=== PATIENT | female | born 1955 | race Caucasian/White ===

== ENCOUNTER 2017-12-31 20:52 | Emergency (ER) | payer MEDICARE, BC ==
[2017-12-31] MEDS ORDERED: Acetaminophen/oxyCODONE 325-5 MG Tab PO ONE (20:53)
[2017-12-31] MEDS ORDERED: Ondansetron 4 MG/2 ML SDV IVPUSH STA ×2 (21:11→22:47)
[2017-12-31] MEDS ORDERED: Morphine 4 MG/ML Syringe IVPUSH ONE ×2 (21:11→22:47)
[2017-12-31] MEDS ORDERED: Diphtheria,Pertussis(Acell),Tetanus Vaccine 0.5 ML Syringe IM ONE (21:12)
--- NOTE | 2017-12-31 21:30 | EDM.PDOC ---
ED HPI GENERAL MEDICAL PROBLEM - General Chief Complaint: Upper Extremity Injury/Pain Stated Complaint: "Fell and hurt my wrist" Time Seen by Provider: 12/31/17 21:23 Source of Information: Reports: Patient History Limitations: Reports: No Limitations - History of Present Illness INITIAL COMMENTS - FREE TEXT/NARRATIVE: This patient is a 62 year old female that presents to the ER. Patient reports she was at home wearing slippers when she tripped over them. She reprots falling down on the carpet. Patient reports having pain to the right wrist. Patient reports that she fell and hit the left front of her face on the carpet. Patient reports that when she got up on her own that she felt nauseated. Patient denies any other injury other than right wrist and left face. Patient denies espinoza, dizziness, v, d, f, neck pain, neck stiffness, cp, soa, abd pain, back pain, left arm pain, lower extremity pain, pelvis/hip pain. Patient ambulatory. Pulses +2, cap refill < 2sec, sensory intact, neurovascular intact of all extremities. RUE wrist motor decreased due to deformity and pain. Motor intact to LUE, BLE. Will CT head, neck, face due to facial trauma with abrasion , nausea, taking aspirin, and distracting injury to wrist. Onset: Today Onset Date: 12/31/17 Duration: Hour(s): (1) Location: Reports: Head, Upper Extremity, Right Front/Back Body Image: 1 - pain, tenderness, obvious deformity. 2 - abrasion Severity: Moderate Improves with: Reports: Immobilization Worsens with: Reports: Movement Associated Symptoms: Reports: Nausea/Vomiting. Denies: Confusion, Chest Pain, Cough, cough w sputum, Diaphoresis, Fever/Chills, Headaches, Loss of Appetite, Malaise, Rash, Seizure, Shortness of Breath, Syncope, Weakness - Related Data Allergies Allergy/AdvReac Type Severity Reaction Status Date / Time Sulfa (Sulfonamide Allergy Paralysis Verified 12/31/17 22:25 Antibiotics) Home Meds: Home Meds Aspirin [Adult Low Dose Aspirin EC] 81 mg PO DAILY 12/31/17 [History] Calcium Carb/Vit D3/Minerals [Calcium 600+D Plus Minerals] 1 each PO BID [History] Cholecalciferol (Vitamin D3) [Vitamin D3] 2,000 unit PO ASDIRECTED 12/31/17 [ History] FLUoxetine [PROzac] 40 mg PO DAILY 12/31/17 [History] Levothyroxine [Synthroid] 88 mcg PO DAILY 12/31/17 [History] Lisinopril 10 mg PO DAILY 12/31/17 [History] Multivitamin with Minerals [Multiple Vitamin] 1 tab PO DAILY 12/31/17 [History] clonazePAM [Clonazepam] 0.5 mg PO DAILY 12/31/17 [History] Review of Systems - Review of Systems Review Of Systems: See Below Constitutional: Reports: No Symptoms Eyes: Reports: No Symptoms Ears: Reports: No Symptoms Nose: Reports: No Symptoms Mouth/Throat: Reports: No Symptoms Respiratory: Reports: No Symptoms Cardiovascular: Reports: No Symptoms GI/Abdominal: Reports: Nausea. Denies: Vomiting Genitourinary: Reports: No Symptoms Musculoskeletal: Reports: No Symptoms Skin: Reports: Wound (left face) Neurological: Reports: No Symptoms. Denies: Confusion, Dizziness, Headache, Numbness, Seizure, Syncope, Tingling, Tremors, Difficulty Walking, Weakness, Change in Speech, Gait Disturbance Psychiatric: Reports: No Symptoms ED EXAM, GENERAL - Physical Exam Exam: See Below Exam Limited By: No Limitations General Appearance: Alert, WD/WN, No Apparent Distress Eye Exam: Bilateral Eye: EOMI, Normal Fundi, PERRL Ears: Normal External Exam, Normal Canal, Hearing Grossly Normal, Normal TMs Ear Exam: Bilateral Ear: Auricle Normal, Canal Normal, TM normal Nose: Normal Inspection, Normal Mucosa, No Blood Throat/Mouth: Normal Inspection, Normal Lips, Normal Teeth, Normal Gums, Normal Oropharynx, Normal Voice, No Airway Compromise Head: Facial Swelling (mild left infraorbital soft tissue swelling, with abrasion. ) Neck: Normal Inspection, Supple, Non-Tender, Full Range of Motion Respiratory/Chest: No Respiratory Distress, Lungs Clear, Normal Breath Sounds, No Accessory Muscle Use, Chest Non-Tender Cardiovascular: Normal Peripheral Pulses, Regular Rate, Rhythm, No Edema, No Gallop, No JVD, No Murmur, No Rub Peripheral Pulses: 2+: Brachial (L), Brachial (R), Radial (L), Radial (R), Posterior Tibial (L), Posterior Tibial (R) GI/Abdominal: Normal Bowel Sounds, Soft, Non-Tender, No Organomegaly, No Distention, No Abnormal Bruit, No Mass, Pelvis Stable Back Exam: Normal Inspection, Full Range of Motion. No: CVA Tenderness (L), CVA Tenderness (R), Decreased Range of Motion, Muscle Spasm, Paraspinal Tenderness, Vertebral Tenderness Extremities: No Pedal Edema, Normal Capillary Refill, Other (Right wrist pain, tenderness, swelling, obvious deformity with fork. ) Neurological: Alert, Oriented, Normal Cognition, Normal Gait, Normal Reflexes, No Motor/Sensory Deficits Psychiatric: Normal Affect, Normal Mood Skin Exam: Warm, Dry, Normal Color, No Rash, Wound/Incision (superficial abrasion left infraobrital region and lateral obrital left region. ) Lymphatic: No Adenopathy ED TRAUMA EXTREMITY PROCEDURES - Splinting Right Upper Extremity Pre-Procedure NV Status: Normal Post-Procedure NV Status: Normal Splint Material: Fiberglass Splint Design: Sugar Tong, Sling Applied & Form Fitted By: Provider Provider Post-Splint Application NV Check: NV Status Normal, Good Position Complications: No Course - Vital Signs Last Recorded V/S: Last Vital Signs Temp 98.0 F 12/31/17 20:56 Pulse 98 12/31/17 20:56 Resp 20 12/31/17 20:56 BP 157/97 H 12/31/17 20:56 Pulse Ox 99 12/31/17 20:56 - Orders/Labs/Meds Orders: Active Orders 24 hr Category Date Time Status Vaccines to be Administered [RC] PER UNIT ROUTINE Care 12/31/17 21:12 Active Cervical Spine wo Cont [CT] Stat Exams 12/31/17 21:11 Taken Head wo Cont [CT] Stat Exams 12/31/17 21:11 Ordered Max Facial Sinus wo Cont [CT] Stat Exams 12/31/17 21:11 Taken Wrist Comp Min 3V Rt [CR] Stat Exams 12/31/17 21:04 Taken Meds: Medications Discontinued Medications Generic Name Dose Route Start Last Admin Trade Name Freq PRN Reason Stop Dose Admin Diphtheria/Tetanus/Acell Pertussis 0.5 ml 12/31/17 21:12 12/31/17 21:42 Adacel IM 12/31/17 21:13 0.5 ml .ONCE ONE Administration Morphine Sulfate 4 mg 12/31/17 21:11 12/31/17 21:28 Morphine IVPUSH 12/31/17 21:12 4 mg ONETIME ONE Administration Morphine Sulfate 4 mg 12/31/17 22:47 12/31/17 23:00 Morphine IVPUSH 12/31/17 22:48 4 mg ONETIME ONE Administration Morphine Sulfate 4 mg 01/01/18 00:05 01/01/18 00:11 Morphine IVPUSH 01/01/18 00:06 4 mg ONETIME ONE Administration Morphine Sulfate 4 mg 01/01/18 00:26 Morphine IVPUSH 01/01/18 00:27 ONETIME ONE Ondansetron HCl 4 mg 12/31/17 21:11 12/31/17 21:25 Zofran IVPUSH 12/31/17 21:12 4 mg NOW STA Administration Ondansetron HCl 4 mg 12/31/17 22:47 12/31/17 22:56 Zofran IVPUSH 12/31/17 22:48 4 mg NOW STA Administration Ondansetron HCl 4 mg 01/01/18 00:26 01/01/18 00:43 Zofran IVPUSH 01/01/18 00:27 4 mg NOW STA Administration Oxycodone/Acetaminophen 1 packet 01/01/18 00:27 Take Home: Acetaminophen/Oxycodon, 2 Tab Pack PO 01/01/18 00:28 ONETIME ONE - Radiology Interpretation Free Text/Narrative:: Interpreted by Radiologist: CT Head: Bialteral stimulator leads noted. No other intracranial abnormality. CT Facial: No fracture identified CT Cervical: Suspicion of fracture off the posterior aspec of the left superior C5 facet, age uncertain. Mild anterior displacement of C3 in relation to the C4 and mild moderate anterior displacement of C6 on C7. I am uncertain whether these are chronic of acute changes. Comparison with prior cervical plain examinations post surgery is difficult, as there are no true lateral views on the studies. Displacement may relate to degenerative arthritis rather than acute trauma. Xray Right Wrist: Fracture distal radius with mild to moderate displacement. CT Results Date: 01/01/18 CT Results Time: 00:00 - Re-Assessments/Exams Free Text/Narrative Re-Assessment/Exam: 12/31/17 2334: Still awaiting imaging results. I called [place] to check on this. Still need to be read. 01/01/18 00:12 I have reviewed patient CT results. The patient on examination has no vetebral tenderness. No soft tissue tenderness. No stepoffs. She has complete ROM of the neck without pain, numbness, tingling, weakness. She has full flexion and extension without difficulty. I do believe this is chronic and not related to acute trauma. 01/01/18 00:25 I called and spoke to orthopedic at [facility]. Dr. Jones would like me to splint the patient and discharge home. Patient will call his office on Wednesday for appointment to be seen on Wednesday. Departure - Departure Time of Disposition: 00:57 Disposition: Home, Self-Care 01 Condition: Fair Clinical Impression: Fracture of radius and ulna Qualifiers: Encounter type: initial encounter Fracture type: closed Laterality: right Qualified Code(s): S52.91XA - Unspecified fracture of right forearm, initial encounter for closed fracture Fall Qualifiers: Encounter type: initial encounter Qualified Code(s): W19.XXXA - Unspecified fall, initial encounter Facial abrasion Qualifiers: Encounter type: initial encounter Qualified Code(s): S00.81XA - Abrasion of other part of head, initial encounter - Discharge Information Instructions: Cast or Splint Care, Adult, [id number], Wrist Fracture Treated With Immobilization, [id number], Radial Fracture, Abrasion Referrals: Omayra Farmer PA [Primary Care Provider] - Forms: ED Department Discharge Additional Instructions: Followup with orthopedic Dr. Jones [facility] by calling office Wednesday Return to the ER for worsening of condition or any emergent concerns Followup with your primary care provider Rest Ice Elevate Splint in place Sling in place Percocet 5/325mg 1-2 pills every 4-6 hours as needed for pain #20 no refill - My Orders Last 24 Hours: My Active Orders 12/31/17 21:04 Wrist Comp Min 3V Rt [CR] Stat 12/31/17 21:11 Cervical Spine wo Cont [CT] Stat Head wo Cont [CT] Stat Max Facial Sinus wo Cont [CT] Stat 12/31/17 21:12 Vaccines to be Administered [RC] PER UNIT ROUTINE - Assessment/Plan Last 24 Hours: My Active Orders 12/31/17 21:04 Wrist Comp Min 3V Rt [CR] Stat 12/31/17 21:11 Cervical Spine wo Cont [CT] Stat Head wo Cont [CT] Stat Max Facial Sinus wo Cont [CT] Stat 12/31/17 21:12 Vaccines to be Administered [RC] PER UNIT ROUTINE Plan: PLEASE SEE RN NOTE FOR PFSH.
[2018-01-01] MEDS ORDERED: Morphine 4 MG/ML Syringe IVPUSH ONE ×2 (00:05→00:26)
[2018-01-01] MEDS ORDERED: Ondansetron 4 MG/2 ML SDV IVPUSH STA (00:26)
[2018-01-01] MEDS ORDERED: Take Home: Acetaminophen/oxyCODONE 325-5 MG, 2 Tab Pack PO ONE (00:27)
== END 2018-01-01 01:15 | disposition home or self-care (01) ==
LOC: CC.ED 20:52
DX: S52.501A Unspecified fracture of the lower end of right radius, initial encounter for closed fracture (principal); S00.81XA Abrasion of other part of head, initial encounter; Z79.82 Long term (current) use of aspirin; Z79.899 Other long term (current) drug therapy; Z88.2 Allergy status to sulfonamides; W01.198A Fall on same level from slipping, tripping and stumbling with subsequent striking against other object, initial encounter; Y92.009 Unspecified place in unspecified non-institutional (private) residence as the place of occurrence of the external cause; Z23 Encounter for immunization
CPT/HCPCS: 29125; 70450; 70486; 72125; 73110-RT; 90471; 90715; 96374; 96375; 96376; 99284; A9270-GY; J2270; J2405